=== PATIENT | female | born 2000 | race Caucasian/White ===

== ENCOUNTER 2021-06-11 19:31 | Emergency (ER) | payer BC, SELFPAY ==
[2021-06-11 19:45] VITALS: BP 145/86; PULSE 107; RESP 18; TEMP 36.6; O2SAT 100
--- NOTE | 2021-06-11 19:53 | ED.GENADULT ---
HPI - General Adult General Chief complaint: Abdominal Pain Stated complaint: sharp side pain Time Seen by Provider: 06/11/21 19:53 Source: patient, RN notes reviewed and old records reviewed Mode of arrival: ambulatory Limitations: no limitations History of Present Illness HPI narrative: 21 year old female who presents to [facility] care with complaints of left abdominal pain since Monday which comes and goes. Patient states that when she gets pain it's sharp stabbing and will last 3 or 4 hours and then eases and is tender. Patient states she has not had fevers, chills or sweats, denies any nausea or vomiting but has had diarrhea last night and today. Patient has had Covid vaccinations and had COVID in February of 2021, has not had flu shot. Onset (ago): day(s) (2) Location: abdomen (left mid abdomen) Radiation: non-radiation Related Data Home Medications Medication Instructions Recorded Confirmed cetirizine [Zyrtec] 10 mg PO DAILY 06/11/21 06/11/21 etonogestrel [Implanon] 1 implant SUBDERMAL ONCE 06/11/21 06/11/21 Allergies Allergy/AdvReac Type Severity Reaction Status Date / Time No Known Allergies Allergy Verified 06/11/21 20:57 Review of Systems Review of Systems: CONSTITUTIONAL: Denies fever, chills, or sweats. EYES: Denies visual changes, redness, or discharge. ENT: Denies rhinorrhea, congestion, sore throat, or otalgia. CARDIOVASCULAR: Denies chest pain, palpitations, or edema. RESPIRATORY: Denies cough or dyspnea. GASTROINTESTINAL: positive for intermittent left mid abdominal pain, no nausea, vomiting, positive for diarrhea. GENITOURINARY: Denies dysuria or hematuria. SKIN: Denies rash or itching. MUSCULOSKELETAL: Denies back pain, joint pain, or myalgia. NEUROLOGIC: Denies headache, numbness, or weakness. PSYCHIATRIC: Denies anxiety or depression. All systems reviewed & are unremarkable except as noted in HPI and below PMFSH Past Medical History Medical History COVID-21 February 2021 Surgical History Surgical History History of bunionectomy of right great toe History of tonsillectomy and adenoidectomy Social History Social History Smoking status: Never smoker Comments At time of signature, agree with nursing past medical, surgical, social and family history. There is no relevant family history pertinent to the presenting complaint Exam Narrative: GENERAL: Well-appearing, well-nourished, and in no acute distress. HEAD: Normocephalic, atraumatic. EYES: PERRLA and EOMI. ENT: Nares clear, no rhinorrhea or epistaxis. Mucous membranes moist.TM's normal, throat pink with no lesions exudates, no tonsils present. NECK: Supple. CHEST: Clear to auscultation. No respiratory distress. HEART: Regular rate and rhythm. No murmur heard. Normal peripheral pulses. ABDOMEN: Soft,minimal tenderness on palpation, nondistended, normal active bowel sounds, reports of episodic sharp mid left abdominal pain with diarrhea since last PM. EXTREMITIES: Normal range of motion. No edema. SKIN: Warm, dry, no rash. NEURO: No focal deficits. Alert and oriented x3.anxious Course Course Level of Care: Express Care Visit Vital Signs Vital signs: Vital Signs Temperature 36.6 C 06/11/21 19:45 Pulse Rate 107 H 06/11/21 19:45 Respiratory Rate 18 06/11/21 19:45 Blood Pressure 145/86 H 06/11/21 19:45 Pulse Oximetry 100 06/11/21 19:45 Temperature 36.6 C 06/11/21 19:45 Pulse Rate 107 H 06/11/21 19:45 Respiratory Rate 18 06/11/21 19:45 Blood Pressure 145/86 H 06/11/21 19:45 Pulse Oximetry 100 06/11/21 19:45 Transfer Transfered to: [place] Transportation: Other (private car) Transfer rationale: Abdominal pain Accepting physician: Dr Aguillon Transfer comments: Transfer per private car for further evaluation of abdominal pain. Medi
== END 2021-06-11 20:23 | disposition short-term general hospital (02) ==
PROVIDERS: Emergency Provider Registered Nurse
DX: R10.9 Unspecified abdominal pain (principal); Z86.16 Personal history of COVID-19
CPT/HCPCS: 36416; 81003; 86308; 99213; G0463

== ENCOUNTER 2021-06-11 20:40 | Emergency (ER) | payer BC, SELFPAY ==
[2021-06-11 20:50] VITALS: BP 148/81; PULSE 128; RESP 20; TEMP 37.1; O2SAT 100
--- NOTE | 2021-06-11 20:57 | ED.ABDPAIN ---
HPI - Abdominal Pain General Chief Complaint: Abdominal Pain Stated Complaint: Abd pain Time Seen by Provider: 06/11/21 20:41 History of Present Illness HPI narrative: 21-year-old female presented to the emergency room complaints of a left upper quadrant pain since yesterday. Describes pain as intermittent and stabbing. Patient states that she has multiple episodes of diarrhea. Patient was seen at urgent care earlier today, because she was told by family member that she might have mono. Patient does not have a fever, fatigue, sore throat. Per patient, her mono test was negative. Patient also reports recent upper respiratory symptoms. Related Data Home Medications Medication Instructions Recorded Confirmed cetirizine [Zyrtec] 10 mg PO DAILY 06/11/21 06/11/21 etonogestrel [Implanon] 1 implant SUBDERMAL ONCE 06/11/21 06/11/21 Allergies Allergy/AdvReac Type Severity Reaction Status Date / Time No Known Allergies Allergy Verified 06/11/21 20:57 Review of Systems Review of Systems: CONSTITUTIONAL: Denies fever, chills, or sweats. EYES: Denies visual changes, redness, or discharge. ENT: Denies rhinorrhea, congestion, sore throat, or otalgia. CARDIOVASCULAR: Denies chest pain, palpitations, or edema. RESPIRATORY: Denies cough or dyspnea. GASTROINTESTINAL: Reports abdominal pain and diarrhea GENITOURINARY: Denies dysuria or hematuria. SKIN: Denies rash or itching. MUSCULOSKELETAL: Denies back pain, joint pain, or myalgia. NEUROLOGIC: Denies headache, numbness, dizziness, or weakness. PSYCHIATRIC: Denies anxiety or depression. [facility] Past Medical History Medical History COVID-21 February 2021 Surgical History Surgical History History of bunionectomy of right great toe History of tonsillectomy and adenoidectomy Social History Social History Smoking status: Never smoker Exam Narrative: GENERAL: Well-appearing, well-nourished, and in no acute distress. HEAD: Normocephalic, atraumatic. EYES: PERRLA and EOMI. CHEST: Clear to auscultation. No respiratory distress. No wheezes rales or rhonchi HEART: Regular rate and rhythm. No murmur heard. Normal peripheral pulses. ABDOMEN: Soft, nontender, nondistended, normal active bowel sounds. EXTREMITIES: Normal range of motion. No edema. SKIN: Warm, dry, no rash. NEURO: No focal deficits. Alert and oriented x3. PSYCH: Normal mood and affect. MDM - Abdominal Pain MDM Narrative Medical decision making narrative: 21-year-old female presented the emergency room with left upper quadrant tenderness from a local urgent care. Patient states that she developed left upper quadrant pain approximately 2 days ago, and today developed mild follow-up with us of diarrhea. Patient also stated that about 2 weeks ago she had an upper respiratory infection that lasted several days. CBC and CMP were unremarkable. Urine was clean. I suspect this patients pain is likely due to either colitis from the diarrhea, or mesenteric adenitis from a recent URI. Patient responded well to Toradol. Lab Data Attestation: I reviewed the patient's lab results. Discharge Plan Discharge Clinical Impression: Left sided abdominal pain Patient Disposition: Home, Self-Care Condition: Stable Instructions: Antibiotic Form Prescriptions: New prednisone 20 mg tablet 40 mg PO DAILY 5 Days Qty: 10 RF: 0 No Action cetirizine [Zyrtec] 10 mg Tablet 10 mg PO DAILY RF: 0 Implanon 68 mg Implant 1 implant SUBDERMAL ONCE RF: 0 Follow-up/Referrals: Coty Calvert [Other] Time of Disposition: 23:39
[2021-06-11] MEDS: SODIUM CHLORIDE 0.9% IV 1,000 ML 999 ML IV CONT (21:08)
[2021-06-11 21:16] LABS: Basophils Percent Auto 0.4 % (0.2-1.2); Eosinophils Absolute Auto 0.3 K/mm3 (0-0.3); Eosinophils Percent Auto 2.5 % (0-4.4); Hematocrit 41.7 % (37.0-47.0); Hemoglobin 13.7 g/dL (12.0-15.0); Immature Granulocyte Absolute 0.03 K/mm3 (0.00-0.031); Immature Granulocyte Percent A 0.3 % (0-0.5); Lymphocytes Absolute Auto 2.33 K/mm3 (0.9-3.2); Lymphocytes Percent Auto 22.2 % (18.3-44.2); Mean Corpuscular HGB Conc 32.9 g/dl (32-36); Mean Corpuscular Hemoglobin 28.2 pg (26-34); Mean Corpuscular Volume 85.8 fl (80-100); Mean Platelet Volume 10.7 fl (7.4-10.4); Monocytes Absolute Auto 0.9 K/mm3 (0.1-0.6); Neutrophils Absolute Auto 6.9 K/mm3 (1.3-6.7); Neutrophils Percent Auto 65.6 % (45.5-73.1); Platelet Count Result 352 k/mm3 (150-375); Red Blood Count 4.86 M/mm3 (4.2-5.4); White Blood Count 10.5 K/mm3 (4.5-10.0)
[2021-06-11 21:19] LABS: Alanine Aminotransferase 92 U/L (4-35); Albumin Level 4.6 g/dL (3.5-5.1); Alkaline Phosphatase 143 U/L (38-126); Anion Gap 9 mmol/L (8-16); Aspartate Amino Transferase 36 U/L (14-36); Bilirubin,Total 0.2 mg/dL (0.2-1.3); Blood Urea Nitrogen 11 mg/dL (7-17); Calcium 9.4 mg/dL (8.4-10.2); Carbon Dioxide 25 mmol/L (22-30); Chloride 106 mmol/L (98-107); Estimated CRCL calculation 99 ml/min; Estimated Glomerular Filt Rate > 60; Glucose 110 mg/dL (65-110); Potassium 3.6 mmol/L (3.4-5.0); Sodium 140 mmol/L (137-145)
[2021-06-11 21:55] LABS: Add Urine Microscopic? NO; Appearance Urine Clear (Clear); Bilirubin Urine Negative (Negative); Blood Urine Negative (Negative); Color Urine Colorless (Yellow); Glucose Urine UA Negative (Negative); Ketones Urine Negative (Negative); Leukocyte Esterase Ur Negative LEU/UL (Negative); Nitrate Urine Negative (Negative); Protein Urine Negative (Negative); Urobilinogen Urine Negative mg/dL (<2.0)
[2021-06-11 22:29] LABS: Specific Grav Ur 1.003 (1.001-1.035)
[2021-06-11] MEDS: KETOROLAC 30 MG/ML VIAL (*BKC) IM (22:55)
== END 2021-06-11 23:57 | disposition home or self-care (01) ==
PROVIDERS: Emergency Provider Nurse Practitioner Family
DX: R10.12 Left upper quadrant pain (principal); Z86.16 Personal history of COVID-19
CPT/HCPCS: 36415; 80053; 81003; 81025; 85025; 96360; 96372; 99283; J1885; J7030